=== PATIENT | female | born 1930 | race Caucasian/White ===

== ENCOUNTER 2017-01-26 17:14 | Inpatient (IN) | payer OTHER ==
[~2017-01-26] VITALS: Ht 157.5 cm; Wt 70.6 kg
--- NOTE | ~2017-01-26 | HM ---
Unit #: [id number] #: [id number] Patient: NIDIA PANDEY [id number] [address] [address] [id number] I MR#: [id number] NAME: NIDIA PANDEY : 1930 SEX: F STUDY DATE/TIME: UNIT: C3A PCU ROOM: 323 [facility] DESCRIPTION: Holter Monitor Attending Physician: Franco Crowe M.D. Primary Care Physician: Isabell Maciel A.P.R.N. CARDIOLOGY REPORT EXAM Holter Monitor DATE APPLIED 01/27/2017 DATE SCANNED 02/03/2017 ORDERED BY Matthew READ BY Dr. Pablito Sales REASON FOR TEST PVCs. DESCRIPTION 1. Basic underlying rhythm is normal sinus rhythm. Total beats 91,639. Average heart rate 63 per minute. Heart rate varies from 48 per minute at 9:53 a.m. to 91 per minute at 1:54 p.m. 2. 7024 isolated PVCs noted. Episodes of bigeminy noted. 3. 480 isolated PACs and 6 atrial couplets noted. Had 3 beat run of atrial tachycardia noted. No high grade AV blocks noted. 4. No diary with the symptoms available. Dictated by... Chloe Lee/alina TD: 02/04/2017 07:43 JOB #: [id number] Unit #: [id number] #: [id number] Patient: NIDIA PANDEY CARDIOLOGY REPORT Page 1 of 1 X Mary Sales MD HOLTER MONITOR REPORT
--- NOTE | ~2017-01-26 | CT23 ---
[facility] A Service of [facility] & [facility] RADIOLOGY TEXT RESULTS PATIENT: NIDIA PANDEY LOCATION: [facility] 323-01 : 32 UNIT #: [id number] AGE: [address]: Franco Crowe MD SEX: F ORDER DR: [id number] [facility] [address] [facility]. [place], [place] [address] [id number] I MR#: [id number] Acc #: [id number] NAME: NIDIA PANDEY : 1930 SEX: F STUDY DATE/TIME: 01/27/2017 17:53 UNIT: [address] ROOM: [facility] STUDY DESCRIPTION: CT Angio Neck Attending Physician: Franco Crowe M.D. Ordering Physician: Franco Crowe M.D. Primary Care Physician: Isabell Maciel A.P.R.N. MEDICAL IMAGING REPORT This report is preliminary unless electronic signature is present EXAM CT angiogram neck with contrast dated 01/27/2017. HISTORY Blurred vision, increasing confusion and weakness since 01/26/2017. FINDINGS Please see CT ANGIO HEAD report for combined text results. Dictated by... Rafia Lundberg M.D. THIS IS AN ELECTRONICALLY VERIFIED REPORT Rafia Lundberg M.D. at 01/28/2017 7:09 PM CPR/psc TD: 01/28/2017 11:17 JOB #: [id number] MEDICAL IMAGING REPORT Page 1 of 1 COPY
--- NOTE | ~2017-01-26 | MR17 ---
[facility] A Service of [facility] & [facility] RADIOLOGY TEXT RESULTS PATIENT: NIDIA PANDEY LOCATION: [facility] 466-01 : 32 UNIT #: [id number] AGE: [address]: Franco Crowe MD SEX: F ORDER DR: [id number] [facility] [address] [facility]. [place], [place] [address] [id number] I MR#: [id number] Acc #: [id number] NAME: NIDIA PANDEY : 1930 SEX: F STUDY DATE/TIME: 01/27/2017 11:18 UNIT: [facility] ROOM: [facility] STUDY DESCRIPTION: MR Brain WWo Contrast Attending Physician: Franco Crowe M.D. Ordering Physician: Darrell Castro M.D. Primary Care Physician: Isabell Maciel A.P.R.N. MRI CENTER REPORT This report is preliminary unless electronic signature is present. EXAM Brain MRI with and without HISTORY Visual disturbance. Patient complains of decreased vision right eye blurred with increased confusion and weakness for 5 days. COMMENTS MRI of the brain was performed prior to and following intravenous administration of 14 mL of MultiHance. Head CT comparison is from 01/26/2017. There is abnormally restricted diffusion in the left posterior cerebral artery distribution. It is ill-defined predominately inferiorly involving white matter and to a lesser extent the undersurface cortex left occipital lobe. It is consistent with visual disturbance given involvement of the optic radiations. It measures at most about 5 cm AP dimension 1.5 cm ML dimension. It is not associated with hemorrhagic transformation or significant mass effect. Please correlate for clinical evidence for risk factors for thromboembolic insult to the left posterior cerebral artery distribution. There is preexisting moderate white matter signal abnormality most apparent in the deep periventricular white matter which is nonspecific but likely due to small vessel disease. It is asymmetrically worse on the left side than the right side in general. There is also a small amount of signal abnormality in the charly probably due to small vessel disease. There are prominent perivascular spaces in the bilateral basal ganglia in addition to some chronic lacunar disease with smaller thalamic insults. The major arterial intracranial flow voids are currently maintained. There is no extraaxial fluid collection. There is mild generalized atrophy, essentially age-appropriate. The patient has had cataract surgery bilaterally. There is minimal fluid or inflammatory change in the right side mastoid air cells. Paranasal sinuses are clear. [facility] A Service of [facility] & [facility] RADIOLOGY TEXT RESULTS PATIENT: NIDIA PANDEY LOCATION: [facility] 466- : 32 UNIT #: [id number] AGE: [address]: Franco Crowe MD SEX: F ORDER DR: Small amount of susceptibility along the left-sided medulla service nonspecific possibly some old blood product deposition. This raises possibility of small amount of superficial siderosis possibly due to prior intracranial hemorrhage or surgery to the neuraxis. Following contrast administration, there is no pathologic intracranial enhancement. No intracranial mass lesion suspected. IMPRESSION 1. There is abnormally restricted diffusion involving the left posterior cerebral artery distribution. It is most concerning for a recent thromboembolic insult. This would be consistent with new onset visual disturbance. Further evaluation for thromboembolus source is recommended. 2. Moderate preexisting probable sequelae of small vessel disease. 3. Atrophy. No intracranial mass effect or extraaxial fluid collection. 4. 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 Please correlate further with clinical history. Dictated by... Nohemi Bolaños M.D. THIS IS AN ELECTRONICALLY VERIFIED REPORT Nohemi Bolaños M.D. at 01/27/2017 2:19 PM KENDRICK/kianna TD: 01/27/2017 12:34 JOB #: [id number] MRI CENTER REPORT Page 1 of 1 COPY
--- NOTE | ~2017-01-26 | EKG ---
PATIENT: NIDIA PANDEY UNIT #: [id number] Ventricular Rate: 68 BPM Atrial Rate: 68 BPM P-R Interval: 164 ms QRS Duration: 104 ms Q-T Interval: 412 ms QTC Calculation(Bezet): 438 ms P [place]: 66 degrees Calculated R [place]: 52 degrees Calculated T [place]: 70 degrees Diagnosis Line: Sinus rhythm with occasional Premature ventricular Diagnosis Line: complexes Diagnosis Line: Otherwise normal ECG Diagnosis Line: When compared with ECG of 26-JAN-2017 17:21, Diagnosis Line: (unconfirmed) Diagnosis Line: No significant change was found Diagnosis Line: Confirmed by HARRISON MENDEZ MD ([id number]) on 01/28/2017 Diagnosis Line: 4:55:08 PM INTERPRETING MD: VANESSA OCHOA
--- NOTE | ~2017-01-26 | HP ---
Unit #: [id number] #: [id number] Patient: NIDIA PANDEY [id number] [address] [place], [place] [address] [id number] I MR#: [id number] NAME: NIDIA PANDEY ROOM: [facility] Age: 86 Sex: F Admission Date: 01/26/2017 : 1930 Attending Physician: Franco Crowe M.D. Primary Care Physician: Isabell Maciel A.P.R.N. HISTORY AND PHYSICAL CHIEF COMPLAINT Confusion with right visual changes. HISTORY OF PRESENT ILLNESS This pleasant 86-year-old female with hypertension, hyperlipidemia, peripheral vascular disease, was transferred from [facility] emergency department for episode of confusion. The patient states that over the past two to three days has not felt well, has been weaker and sleeping more. She noticed that her right eye vision is changed, that she is having decreased vision over the right lateral aspect of her eye. [place] very weak this morning, and yesterday was a bit confused. States that she was a bit disoriented when she was driving around her neighborhood that she missed her usual street, that she walked to the door rather than the bathroom. She went to [facility] emergency department this afternoon where her initial blood pressure was 173/93 but did increase to as high as 196/86. She was given IV fluids and then 15 mg of hydralazine. Current blood pressure is 162/67. Denies true headache with the above, unilateral weakness, or definite dizziness. A CT scan was performed showing a questionable new tiny lesion in the left white matter. It could represent new small vessel ischemic disease. EKG does show unifocal PVCs. PAST MEDICAL HISTORY 1. Admission, 01/2016, for an upper GI bleed secondary to a duodenal bulb ulcer and moderate to severe gastritis. 2. Peripheral vascular disease status post elective right carotid endarterectomy, 11/2015. 3. Essential hypertension. 4. Hyperlipidemia. 5. Appendectomy. 6. Hysterectomy. 7. Right knee arthroscopic surgery. 8. Bilateral cataract extraction. SOCIAL HISTORY The patient lives alone. Her eight years ago. She is a lifelong nonsmoker, does not drink alcohol, previously worked as a teacher. FAMILY HISTORY CAD and kidney cancer. ALLERGIES Possibly to sulfa. Unit #: [id number] #: [id number] Patient: NIDIA PANDEY HOME MEDICATIONS List mentions: 1. Fish oil two capsules in the morning. 2. Multivitamin daily. 3. Cozaar 100 mg q.a.m. 4. Protonix 40 mg daily. 5. Aspirin 81 mg daily. 6. Vitamin D 2,000 units daily. 7. Pravachol 40 mg daily. REVIEW OF SYSTEMS Notable for visual changes right peripheral eye, a little bit of disorientation/confusion, hypertension, peripheral vascular disease, hyperlipidemia and above-mentioned surgeries. All other systems were reviewed and otherwise negative. PHYSICAL EXAMINATION GENERAL APPEARANCE: Delightful, 86-year-old, young-appearing female currently in no acute distress. VITAL SIGNS: Temperature 98.2. Pulse 67. Respirations 18. Current blood pressure 162/67, down from 196/86 after IV hydralazine. O2 saturation is 98% on room air. HEENT EXAMINATION: Eyes: PERRLA. Extraocular muscles are intact. The patient has good peripheral vision bilaterally. Her pharynx is benign. NECK: Supple without adenopathy, thyromegaly or definite carotid bruits. Right CEA scar noted. CHEST: Clear. CARDIAC: Normal S1, S2 with very soft systolic murmur best heard at the upper sternal border. ABDOMEN: Bowel sounds are present. No hepatosplenomegaly, tenderness or masses. Well-healed lower abdominal scars are noted. EXTREMITIES: Without clubbing, cyanosis or edema. Pedal pulses are somewhat diminished. No ulcers on the feet. NEUROLOGIC: The patient is awake, alert. She is oriented. Her cranial nerves are intact except that she is hard of hearing. She has 5+/5 strength throughout, normal obslps-zc-xaro, negative pronator drift. DIAGNOSTIC STUDIES LABORTORY: Hematocrit is 39.7. Normal white count, platelet count. MCV is a little low at 79.1. Normal coags. SMA-12: Glucose 136, sodium 134, potassium 3.4. Normal amylase, lipase. Normal lactic acid. Normal BNP. Negative cardiac markers. Urinalysis is negative. IMAGING: Chest x-ray: No acute disease. Head CT shows a questionably new tiny lesion in the left white matter which could represent new small vessel ischemic disease since last head CT. CARDIOVASCULAR: EKG: Sinus rhythm, rate 70 with occasional unifocal PVC. ASSESSMENT 1. Some disorientation of the past couple of days with some visual disturbance of the right eye. 2. Accelerated hypertension. 3. Occasional PVCs noted on EKG. 4. Peripheral vascular disease status post right carotid endarterectomy. 5. Hyperlipidemia. 6. Peptic ulcer disease. Unit #: [id number] #: [id number] Patient: NIDIA PANDEY PLAN 1. Obtain MRI of the brain. If negative, would consider Ophthalmology consultation. 2. Obtain echo and Holter monitor. 3. Replace potassium, check magnesium, as potassium level is a little bit low. 4. Continue usual medicines. 5. Check lipid profile. 6. DVT prophylaxis. 7. Further workup depending on MRI scan results. 8. Monitor blood pressure and treat if it remains persistently elevated. May need to add a second agent to the patient's Cozaar. Dictated by Chloe Anthony/lola TD: 01/27/2017 06:51 JOB #: [id number] HISTORY AND PHYSICAL Page 1 of 1 X Pat Steward MD X HISTORY AND PHYSICAL
--- NOTE | ~2017-01-26 | CO ---
Unit #: [id number] #: [id number] Patient: NIDIA PANDEY [id number] [facility] [address] [facility]. [place], [place] [address] [id number] I MR#: [id number] NAME: NIDIA PANDEY ROOM: 323 Age: 86 Sex: F Admission Date: 01/26/2017 : 1930 Attending Physician: Franco Crowe M.D. Primary Care Physician: Isabell Maciel A.P.R.N. Consultation Date: 01/26/2017 CONSULTATION REPORT PRIMARY CARE PHYSICIAN Isabell Maciel A.P.R.N. REASON FOR CONSULTATION Episode of confusion, vision changes, and now abnormal MRI with left DESIGN ENGINEERING INTERN infarct. PATIENT IDENTIFICATION This is an 86-year-old right-handed white female, who is evaluated in room 466 at [facility]. SOURCE OF INFORMATION The patient and evaluation done in detail by Dr. Steward. PROBLEM LIST 1. Prior history of GI bleed secondary to duodenal bulb ulcer and wrsakfjr-wt-ybxlzi gastritis. 2. Peripheral vascular disease, status post elective carotid endarterectomy in 11/2015. 3. Essential hypertension. 4. Hyperlipidemia. 5. Appendectomy. 6. Hysterectomy. 7. Right knee arthroscopic surgery. 8. Bilateral cataract extraction. She is on aspirin. HISTORY OF PRESENT ILLNESS This is a very pleasant 86-year-old right-handed white female, who is actually admitted because she reported that she did not feel well, she also complained of decreased vision and also problems in the right lateral aspect, so that prompted an MRI and MRI shows left DESIGN ENGINEERING INTERN distribution multiple embolic type infarct, but almost the whole territory is involved somehow. The patient reports that she started noticing vision changes sometimes during the middle of the last week, so she is not a tPA or interventional candidate. Dr. Crowe has already seen the patient and already started stroke workup. She is already on aspirin and we may have to switch to Plavix, but possible do a ROSELINE and further workup. She does have risk factors including age and hypertension. Her cholesterol was elevated including 201 cholesterol and triglycerides 266, LDL of 110. Her blood pressure when she came in was as high as 173 systolic and 93 Unit #: [id number] #: [id number] Patient: NIDIA PANDEY diastolic. No falls or injuries. Nothing suggesting risk for dissection. PAST MEDICAL HISTORY As discussed above. PAST SURGICAL HISTORY As discussed above. FAMILY HISTORY Coronary artery disease and kidney cancer. SOCIAL HISTORY The patient is for about 8 years. She lives alone, but her son who is involved with her somehow. She is a retired teacher. No tobacco, alcohol, or drug use. REVIEW OF SYSTEMS CONSTITUTIONAL: Mostly, vision changes and some headaches, which is nonspecific. She also feels fatigued and tired and she state that she rest and sleeps, but she still feels like she needs more sleep. NECK: No neck problems. CARDIOVASCULAR: No chest pain, clubbing, cyanosis, orthopnea, or palpitation. PULMONARY: No shortness of air, cough, or expectoration. GI: No nausea, vomiting, diarrhea, or constipation. : No genitourinary symptom. EXTREMITIES: No extremity problems. BACK: No back problem. Psychiatric: No psychotic issue. NEUROLOGIC: Stroke. No other hematologic, dermatologic, or endocrine problems known to me. PHYSICAL EXAMINATION VITAL SIGNS: Temperature 98.6, pulse 63, respirations 16, blood pressure 171/58, O2 saturations were 96% to 99%, weight 155 pounds, BMI was 28. NEUROLOGIC: The patient is awake, alert, oriented x3 and has normal speech. She feels a bit anxious and pressured. Cranial nerve examination demonstrates full fischer of vision to confrontation. Eye movements are conjugate. I did not see any ptosis. I did not see any nystagmus. Extraocular movements are intact. Sensation on the face and scalp are normal. Strength of muscles of facial expression are normal. Hearing seemed to be intact bilaterally. Tongue was midline. Uvula was midline. I could not visualize her oropharynx otherwise. On motor examination, she has normal bulk and tone. Strength was 5-/5 all over. Sensory examination intact for soft touch and pain sensation. No extinction was seen. Romberg was not evaluated. Gait examination was deferred. Reflexes 1/4 in the upper extremities, I could not elicit any in the lower extremities. Toes are equivocal. Unit #: [id number] #: [id number] Patient: NIDIA PANDEY DIAGNOSTIC STUDIES IMAGING STUDIES: Brain MRI which I have reviewed personally. LABORATORY RESULTS: Random glucose of 109 to 136, otherwise chemistry profile was okay. White count was 12.3, hemoglobin and hematocrit of 12.3 and 36.5, platelet count was 213. Urinalysis is unremarkable. IMPRESSION This is a very interesting 86-year-old female, who has left posterior cerebral artery infarct. I do agree with Dr. Crowe to get CTA. I will check other labs. I will put her on Plavix and I would recommend ROSELINE and Holter monitor and we will go from there. She is not a tPA or intervention candidate. She does have some risk factors and I will follow up and see how things go. I am going to move her to third floor and we will start the workup and she may have need some rehab. Dictated by... Jessi Mercado M.D. RICHIE/sharita TD: 01/28/2017 11:10 JOB #: [id number] CONSULTATION REPORT Page 1 of 1 X Jessi Mercado MD X CONSULTATION REPORT
--- NOTE | ~2017-01-26 | DS ---
Unit #: [id number] #: [id number] Patient: NIDIA PANDEY [id number] [address] [address] [id number] I MR#: [id number] NAME: NIDIA PANDEY ROOM: 323 Age: 86 Sex: F Admission Date: 01/26/2017 : 1930 Discharge Date: 01/28/2017 Attending Physician: Franco Crowe M.D. Primary Care Physician: Doug Fountain.PBenRLevi. 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 SECONDARY DIAGNOSES 1. Hypertension, uncontrolled. 2. Dyslipidemia. 3. History of peptic ulcer disease. HOSPITAL COURSE Patient was admitted to the hospital with vision changes, taste changes and some mild confusion which primarily presented itself as difficulty with concentration. She underwent MRI of the head which showed the stroke. She also underwent CT angiogram of the head and neck as well as transesophageal echocardiogram which revealed a grade [address] Mercado with neurology recommended follow up with the [facility]roke [facility] based on the results of the CT angiogram of the head and neck and recommended discharging the patient on Lipitor 80 mg daily, aspirin 81 mg daily and Coumadin. Patient will receive physical therapy, occupational therapy and speech therapy at home and will have a family member stay with her for the next few days. She will follow up with her primary care physician in 1-3 weeks, which is nurse practitioner Isabell Maciel, who works with Dr. Trenton Michel. DISCHARGE DISPOSITION To home. DISCHARGE STATUS Stable. DISCHARGE ACTIVITY Ad álvaro. Patient was verbally advised about fall precautions and cautions around sharp objects based on her Coumadin although the patient already uses all of these precautions even prior to being placed on blood thinners. DISCHARGE DIET 2000 mg sodium heart health diet. DISCHARGE FOLLOWUP With her PCP in 1-3 weeks and with the [facility]roke Team in 4-8 weeks. DISCHARGE MEDICATIONS 1. Lipitor 80 mg p.o. daily. 2. Hydralazine 25 mg p.o. t.i.d. Unit #: [id number] #: [id number] Patient: NIDIA PANDEY 3. Cozaar 100 mg p.o. daily. 4. Multivitamin 1 tablet p.o. daily. 5. Aspirin 81 mg p.o. daily. 6. Protonix 40 mg p.o. daily. 7. Vitamin D 2000 units p.o. daily. 8. Fish oil 1200 mg tablet, 2 tablets p.o. q. a.m. 9. Coumadin 3 mg p.o. daily. She will get her first INR on Thursday with results to her PCPs office. Dictated by... Franco Crowe M.D. DANILO/alina TD: 01/29/2017 08:50 JOB #: [id number] DISCHARGE SUMMARY Page 1 of 1 X Franco Crowe MD X DISCHARGE SUMMARY
--- NOTE | ~2017-01-26 | EKG ---
PATIENT: NIDIA PANDEY UNIT #: [id number] Ventricular Rate: 69 BPM Atrial Rate: 69 BPM P-R Interval: 180 ms QRS Duration: 86 ms Q-T Interval: 402 ms QTC Calculation(Bezet): 430 ms P [place]: 52 degrees Calculated R [place]: 47 degrees Calculated T [place]: 60 degrees Diagnosis Line: Sinus rhythm with frequent Premature ventricular Diagnosis Line: complexes Diagnosis Line: Nonspecific ST abnormality Diagnosis Line: Abnormal ECG Diagnosis Line: When compared with ECG of 04-FEB-2016 15:54, Diagnosis Line: Premature ventricular complexes are now Present Diagnosis Line: Confirmed by MARCELINA KESSLER MD ([id number]) on Diagnosis Line: 01/30/2017 10:40:48 AM INTERPRETING MD: CHECO OCHOA
--- NOTE | ~2017-01-26 | CT17 ---
[facility] A Service of [facility] & [facility] RADIOLOGY TEXT RESULTS PATIENT: NIDIA PANDEY LOCATION: [facility] 323- : 32 UNIT #: [id number] AGE: [address]: Franco Crowe MD SEX: F ORDER DR: [id number] [facility] [address] [place], [place] [address] [id number] I MR#: [id number] Acc #: [id number] NAME: NIDIA PANDEY : 1930 SEX: F STUDY DATE/TIME: 01/27/2017 17:53 UNIT: [address] ROOM: [facility] STUDY DESCRIPTION: CT Angio Head Attending Physician: Franco Crowe M.D. Ordering Physician: Franco Crowe M.D. Primary Care Physician: Isabell Maciel A.P.R.N. MEDICAL IMAGING REPORT This report is preliminary unless electronic signature is present EXAM CT angiogram of the head and neck with contrast dated 01/27/2017. COMPARISON CTA head and neck with contrast dated 07/26/2014. HISTORY Blurred vision, increasing confusion and weakness since 01/26/2017. FINDINGS CT angiogram of the head and neck was obtained with IV contrast in the axial plane. The neck arteries were curved reformatted and the major vessels of the [place] were reformatted in all 3 planes along with 3-D tumbling MIP images and surface-rendered images with MCA snapshots at a separate workstation. This CT exam was performed with one or more of the following radiation dose reduction techniques: Automatic exposure control, adjustment of mA and/or kV according to patient size, and iterative reconstruction. NECK: The left common carotid artery arises from the innominate artery immediately after its origin. Left vertebral artery directly arises from the arch or from the left subclavian artery immediately after its origin. Atherosclerotic plaques are noted in the aortic arch and there appears to be mild prominence of the pulmonary arteries, measuring 2.7 cm in the right and 2.9 cm in the left pulmonary arteries. Main pulmonary artery is not enlarged. No aortic aneurysmal dilatation is seen. Visualized bilateral common carotid arteries demonstrate calcified plaque at the bifurcation of the left CCA. Previously noted narrowing in the region of the right ICA is no longer seen with probably postoperative carotid endarterectomy change. No surgical metallic yokasta are noted but there appears to be mild wall thickening of the distal CCA extending into the STS. [facility] A Service of [facility] & [facility] RADIOLOGY TEXT RESULTS PATIENT: NIDIA PANDEY LOCATION: [facility] 323-01 : 32 UNIT #: [id number] AGE: [address]: Franco Crowe MD SEX: F ORDER DR: ICA bulb with significant improvement in patency. Bilateral ECA are within normal limits, too. Vertebral arteries demonstrate no significant stenosis. They are codominant. HEAD: Bilateral intracranial internal carotid arteries demonstrate atherosclerotic plaques in bilateral cavernous and supraclinoid ICA. Bilateral anterior cerebral arteries, anterior communicating arteries are within normal limits. There appears to be a focal tiny segment of uick-dp-iubsaufm stenosis of the left MCA branch immediately after its origin. No distal flow limitation is seen. Bilateral PComms are noted which feed P2 and distal portions of bilateral [employer] CLE[employer] with very ulsuvjjcxso-qu-iubpsbkw right P1 and a probably hypoplastic left P1 segment. The basilar artery appears to significantly decrease in caliber after the takeoff of bilateral superior cerebellar arteries with a tiny caliber basilar tip. It is probably a congenital appearance. 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 No obvious aneurysm or AVM. Dural venous sinuses are patent without filling defects to suggest thrombosis. EXTRAVASCULAR SOFT TISSUES: Degenerative disc and facet changes are noted at multiple levels of the cervical spine with varying degrees of canal stenosis and neural foraminal narrowing at various levels. Enlarged thyroid gland is noted with heterogeneity. Hypodense and calcified lesions are noted, relatively stable and probably related to goiter. No significant lymphadenopathy. IMPRESSION 1. No aneurysm or AVM. 2. There has been interval improvement in the right internal carotid artery caliber when compared to the prior study where there was severe stenosis. Correlate with history of carotid endarterectomy. There are also some wall thickening and changes at the right distal CCA extending to the right ICA bulb. 3. There is a tiny segment of moderate narrowing noted at the origin of one of the left MCA trifurcation branches, relatively stable. 4. The basilar artery decreases significantly in caliber after takeoff of bilateral PICA with a very tiny tip. 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 Bilateral PComms feed P2 distal portions of bilateral HOUSE CLEANER giving rise to the persistent appearance. Mild atherosclerotic irregularities are noted along the HOUSE CLEANER vessels without any significant occlusion. Possible tiny segment of severe stenosis in presumed P3-P4 segment on the left cannot be excluded. There is, however, flow noted distally. 5. Left P3-P4 junction possible tiny segment of hxiwkzxe-wq-yrgong stenosis, worse since prior study from 2 years ago. 6. There appears to be mild dilatation of bilateral pulmonary arteries. [facility] A Service of [facility] RADIOLOGY TEXT RESULTS PATIENT: NIDIA PANDEY LOCATION: [place] [address] : 32 UNIT #: [id number] AGE: [address]: Franco Crowe MD SEX: F ORDER DR: Dictated by... Rafia Lundberg M.D. THIS IS AN ELECTRONICALLY VERIFIED REPORT Rafia Lundberg M.D. at 01/28/2017 7:09 PM CPR/psc TD: 01/28/2017 11:01 JOB #: [id number] MEDICAL IMAGING REPORT Page 1 of 1 COPY
--- NOTE | ~2017-01-26 | CT71 ---
[facility] A Service of [facility] & [facility] RADIOLOGY TEXT RESULTS PATIENT: NIDIA PANDEY LOCATION: [facility] 323-01 : 32 UNIT #: [id number] AGE: [address]: Franco Crowe MD SEX: F ORDER DR: [id number] [address] [address] [id number] E MR#: [id number] Acc #: [id number] NAME: NIDIA PANDEY : 1930 SEX: F STUDY DATE/TIME: 01/26/2017 18:04 UNIT: SED ROOM: STUDY DESCRIPTION: CT Head Wo Contrast Attending Physician: Kath Patricia M.D. Ordering Physician: Kath Patricia M.D. Primary Care Physician: Isabell Maciel A.P.R.N. MEDICAL IMAGING REPORT This report is preliminary unless electronic signature is present. EXAM CT head without IV contrast. COMPARISON CT angiography of the head and neck dated July 26, 2014. INDICATION 86-year-old female with blurry vision, increasing confusion, and weakness for [address] exam was performed with one or more of the following radiation dose reduction techniques: automatic exposure control, adjustment of mA and/or kV according to patient size, and iterative reconstruction. FINDINGS Mastoid air cells, middle ears, and visualized paranasal sinuses are well-aerated. There are calcifications in the cavernous internal carotid arteries extending into the intracranial segments bilaterally. There are minimal vertebral artery calcifications bilaterally at the level of the foramen magnum. There is no abnormal extraaxial fluid collection. No acute intracranial hemorrhage. No mass effect. There is no convincing evidence of acute cortical ischemia. There is a focus of hypoattenuation immediately adjacent to the left lateral ventricle which was not seen previously but given the density is most in keeping with chronic small vessel ischemic change. IMPRESSION Tiny low density lesion in the left periventricular white matter, not seen on CT angiography of 2014 but perhaps not seen on that exam due to technical factors. This seems most in keeping with chronic small vessel ischemic change. There are no other possible acute intracranial abnormalities seen on this exam. Cerebral volume and cerebellar volume STS. [facility] A Service of [facility] & [facility] RADIOLOGY TEXT RESULTS PATIENT: NIDIA PANDEY LOCATION: [facility] 323-01 : 32 UNIT #: [id number] AGE: [address]: Franco Crowe MD SEX: F ORDER DR: appears to be within normal limits for patient age. Dictated by... Dylan Inman M.D. THIS IS AN ELECTRONICALLY VERIFIED REPORT Dylan Inman M.D. at 02/01/2017 9:57 PM JUDE/jeniffer TD: 01/26/2017 22:40 JOB #: [id number] MEDICAL IMAGING REPORT Page 1 of 1
--- NOTE | ~2017-01-26 | CR72 ---
[facility]. [facility] A Service of [facility] & [facility] RADIOLOGY TEXT RESULTS PATIENT: NIDIA PANDEY LOCATION: [place] [address] : 32 UNIT #: [id number] AGE: [address]: Franco Crowe MD SEX: F ORDER DR: [id number] [address] [address] [id number] E MR#: [id number] Acc #: [id number] NAME: NIDIA PANDEY : 1930 SEX: F STUDY DATE/TIME: 01/26/2017 18:05 UNIT: SED ROOM: STUDY DESCRIPTION: CR Chest Single View Portable Attending Physician: Kath Patricia M.D. Ordering Physician: Kath Patricia M.D. Primary Care Physician: Isabell Maciel A.P.R.N. MEDICAL IMAGING REPORT This report is preliminary unless electronic signature is present. EXAM Frontal chest, 01/26/2017. INDICATION 86-year-old female with altered mental status. Increased confusion, weakness for a couple of days, blurred vision. TECHNIQUE Frontal chest compared with 11/07/2015. FINDINGS Cardiac silhouette is within normal limits. Vascularity is normal. Lungs clear. There are calcified granulomas. Posterior chronic rib fracture on the right. IMPRESSION Negative frontal chest. Chronic posterior rib fracture on the right. Dictated by... David Yuan M.D. THIS IS AN ELECTRONICALLY VERIFIED REPORT David Yuan M.D. at 01/27/2017 8:29 AM NEIL/jeniffer TD: 01/26/2017 23:43 JOB #: [id number] MEDICAL IMAGING REPORT Page 1 of 1
[~2017-01-26 17:14] MED LIST: ASPIRIN EC81 M1 PO; ASPIRIN81 MG PO; BLOOD PRESSURE PILL; COZAAR100 MG PO; FISH OIL 1,2001 EAC1 PO; HYDROCODON-ACE1 EACH PO; LIPITOR40 MG PO; PERCOCET 5/321 UDTAB PO; PRAVASTATIN SOD40 MG PO; PREDNISONE PO; PROTONIX PO; VITAMIN D-32000 UNI1 PO; VITAMIN D2000 UNIT PO; [UNRECOGNIZED DRUG - OTHER] PO
[2017-01-26 17:51] LABS: BASOPHIL# 0.1 X10e3 (0-0.3); BASOPHIL% 0.6 % (0-2.5); EOSINOPHIL# 0.2 X10e3 (0-0.7); EOSINOPHIL% 2.6 % (0.0-7.0); HEMATOCRIT 39.7 % (35.0-45.0); HEMOGLOBIN 13.4 gm/dL (12.0-16.0); LYMPHOCYTE# 2.9 X10e3 (1.0-3.5); LYMPHOCYTE% 32.5 % (17.0-45.0); MEAN CELL VOLUME 79.1 FL (83-96); MEAN CORPUSCULAR HEMOGLOBIN 26.7 PG (28-34); MEAN CORPUSCULAR HGB CONC 33.7 g/dL (30-36); MEAN PLATELET VOLUME 9.6 FL (6.5-11.5); MONOCYTE# 0.9 X10e3 (0-1.0); MONOCYTE% 10.1 % (3.0-12.0); NEUTROPHIL# 4.9 X10e3 (1.5-7.1); NEUTROPHIL% 54.2 % (40-75); PLATELET COUNT 237 X10e3 (140-420); RED BLOOD COUNT 5.02 X10e (3.90-5.30); RED CELL DISTRIBUTION WIDTH 15.2 % (11.0-15.5); WHITE BLOOD COUNT 9.1 X10e3 (4.0-10.5)
[2017-01-26 17:53] LABS: URINE SOURCE CATH
[2017-01-26 17:54] LABS: POC - MYOGLOBIN 76.6 ng/mL (0.0-169.0); POC - TROPONIN <0.05 ng/mL (<=0.05)
[2017-01-26 17:55] LABS: URINE APPEARANCE CLEAR; URINE BILIRUBIN NEG (NEG); URINE BLOOD NEG (NEG); URINE COLOR YELLOW; URINE GLUCOSE NEG (NORM); URINE KETONE NEG (NEG); URINE LEUKOCYTE ESTERASE NEG (NEG); URINE NITRATE NEG (NEG); URINE PH 6.5 (5-8); URINE PROTEIN NEG (NEG); URINE SPECIFIC GRAVITY <=1.005 (1.003-1.035); URINE UROBILINOGEN 0.2 MG/DL (NORM)
[2017-01-26 18:00] LABS: MICRO INDICATED? NO
[2017-01-26 18:00] LABS: DIFF IND NO
[2017-01-26 18:13] LABS: BILIRUBIN, DIRECT 0.1 mg/dL (0.0-0.2); BILIRUBIN,INDIRECT 0.3 mg/dL (0.0-0.9); BILIRUBIN,TOTAL 0.4 mg/dL (0.2-2.0); BUN/CREATININE RATIO 23.75; CALCIUM SERUM 9.3 mg/dL (8.4-10.2); CREATININE SERUM 0.8 mg/dL (0.6-1.4); GLOM FILT RATE Estimated 67.8 mL/min (>60); MAGNESIUM 2.2 mg/dL (1.6-3.0); POTASSIUM 3.4 mmol/L (3.5-5.1); PROTEIN TOTAL SERUM 6.6 g/dL (6.0-8.3)
[2017-01-26 19:19] LABS: POC - CKMB 1.6 ng/mL (0.0-7.9); POC - MYOGLOBIN 84.5 ng/mL (0.0-169.0); POC - TROPONIN <0.05 ng/mL (<=0.05)
[2017-01-27 03:26] LABS: BASOPHIL# 0.1 X10e3 (0-0.3); BASOPHIL% 0.8 % (0-2.5); EOSINOPHIL# 0.3 X10e3 (0-0.7); EOSINOPHIL% 2.5 % (0.0-7.0); HEMATOCRIT 36.5 % (35.0-45.0); HEMOGLOBIN 12.3 gm/dL (12.0-16.0); LYMPHOCYTE# 3.8 X10e3 (1.0-3.5); LYMPHOCYTE% 30.8 % (17.0-45.0); MEAN CELL VOLUME 79.2 FL (83-96); MEAN CORPUSCULAR HEMOGLOBIN 26.7 PG (28-34); MEAN CORPUSCULAR HGB CONC 33.7 g/dL (30-36); MEAN PLATELET VOLUME 9.5 FL (6.5-11.5); MONOCYTE# 1.1 X10e3 (0-1.0); MONOCYTE% 9.1 % (3.0-12.0); NEUTROPHIL% 56.8 % (40-75); PLATELET COUNT 213 X10e3 (140-420); RED BLOOD COUNT 4.61 X10e (3.90-5.30); RED CELL DISTRIBUTION WIDTH 15.2 % (11.0-15.5); WHITE BLOOD COUNT 12.3 X10e3 (4.0-10.5)
[2017-01-27 03:27] LABS: DIFF IND NO
[2017-01-27 03:52] LABS: BUN/CREATININE RATIO 24.28; CALCIUM SERUM 9.7 mg/dL (8.4-10.2); CREATININE SERUM 0.7 mg/dL (0.6-1.4); GLOM FILT RATE Estimated 79.6 mL/min (>60); MAGNESIUM 2.1 mg/dL (1.6-3.0); POTASSIUM 4.8 mmol/L (3.5-5.1)
[2017-01-27 04:11] LABS: %MB 3.8 % (0.0-4.0); MB 2.6 ng/ml
[2017-01-27 16:38] LABS: HEMATOCRIT 38.8 % (35.0-45.0); MEAN CELL VOLUME 79.6 FL (83-96); MEAN CORPUSCULAR HEMOGLOBIN 26.6 PG (28-34); MEAN CORPUSCULAR HGB CONC 33.4 g/dL (30-36); MEAN PLATELET VOLUME 9.3 FL (6.5-11.5); RED BLOOD COUNT 4.88 X10e (3.90-5.30); RED CELL DISTRIBUTION WIDTH 15.2 % (11.0-15.5); WHITE BLOOD COUNT 10.2 X10e3 (4.0-10.5)
[2017-01-27 16:54] LABS: INR 0.9; PARTIAL THROMBOPLASTIN TIME 27.1 SECONDS (23.5-31.3); PROTHROMBIN TIME (PATIENT) 10.3 SECONDS (10.0-11.7)
[2017-01-27 17:04] LABS: ALBUMIN SERUM 3.8 g/dL (3.5-5.0); BILIRUBIN,TOTAL 0.6 mg/dL (0.2-2.0); BUN/CREATININE RATIO 21.25; CREATININE SERUM 0.8 mg/dL (0.6-1.4); GLOM FILT RATE Estimated 67.8 mL/min (>60); POTASSIUM 4.3 mmol/L (3.5-5.1); PROTEIN TOTAL SERUM 6.5 g/dL (6.0-8.3)
[2017-01-27 17:33] LABS: FOLATE (FOLIC ACID) >23.3 ng/mL (>5.8)
[2017-01-28 02:05] LABS: HEMATOCRIT 36.7 % (35.0-45.0); HEMOGLOBIN 12.2 gm/dL (12.0-16.0); MEAN CELL VOLUME 79.1 FL (83-96); MEAN CORPUSCULAR HEMOGLOBIN 26.2 PG (28-34); MEAN CORPUSCULAR HGB CONC 33.1 g/dL (30-36); MEAN PLATELET VOLUME 9.2 FL (6.5-11.5); RED BLOOD COUNT 4.64 X10e (3.90-5.30); RED CELL DISTRIBUTION WIDTH 15.1 % (11.0-15.5); WHITE BLOOD COUNT 10.3 X10e3 (4.0-10.5)
[2017-01-28 02:29] LABS: CALCIUM SERUM 9.2 mg/dL (8.4-10.2); GLOM FILT RATE Estimated 51.7 mL/min (>60); POTASSIUM 3.9 mmol/L (3.5-5.1)
[2017-01-28] MEDS ORDERED: WARFARIN SODIUM3 M1 PO (16:00)
[2017-01-28] MEDS ORDERED: LIPITOR40 MG PO (16:01)
[2017-01-28] MEDS ORDERED: HYDRALAZINE HCL25 MG PO (16:02)
== END 2017-01-28 17:53 | disposition home or self-care (01) | DRG 65 ==
LOC: SED 17:14 → C4C 19:04 → C3A PCU 19:05 → SED 19:05 → C4C 01-27 06:00 → C3A PCU 01-27 15:18
PROVIDERS: Internal Medicine; Psychiatry & Neurology Neurology; Student in an Organized Health Care Education/Training Program
PROC: B328YZZ Computerized Tomography (CT Scan) of Bilateral Internal Carotid Arteries using Other Contrast (ICD-10-PCS; 2017-01-27)
PROC: B32GYZZ Computerized Tomography (CT Scan) of Bilateral Vertebral Arteries using Other Contrast (ICD-10-PCS; 2017-01-27)
PROC: B32RYZZ Computerized Tomography (CT Scan) of Intracranial Arteries using Other Contrast (ICD-10-PCS; 2017-01-27)
PROC: B24BZZ4 Ultrasonography of Heart with Aorta, Transesophageal (ICD-10-PCS; principal; 2017-01-28)
DX: I63.532 Cerebral infarction due to unspecified occlusion or stenosis of left posterior cerebral artery (principal); G81.91 Hemiplegia, unspecified affecting right dominant side; I73.9 Peripheral vascular disease, unspecified; I08.1 Rheumatic disorders of both mitral and tricuspid valves; I70.0 Atherosclerosis of aorta; K27.9 Peptic ulcer, site unspecified, unspecified as acute or chronic, without hemorrhage or perforation; I10 Essential (primary) hypertension; E78.5 Hyperlipidemia, unspecified; Z90.710 Acquired absence of both cervix and uterus; Z98.42 Cataract extraction status, left eye; Z98.41 Cataract extraction status, right eye; Z79.82 Long term (current) use of aspirin; I49.3 Ventricular premature depolarization
CPT/HCPCS: 36415; 51701; 70450; 70496; 70498; 70553; 71010; 80048; 80053; 80061; 80076; 81003; 82150; 82550; 82553; 82607; 82746; 82947; 83036; 83605; 83690; 83735; 83874; 83880; 84132; 84443; 84484; 85025; 85027; 85610; 85730; 86140; 86592; 92523-GN; 93005; 93225; 93226; 93312; 96361; 96374; 97116; 97161; 97165; 97535; 99285; A9577; G8978-GP; G8979-GP; G8987-GO; G8988-GO; G9162-GN; G9163-GN; G9164-GN; J0360; J1650; J2250; J3010; Q9967

== ENCOUNTER 2017-02-02 14:13 | Inpatient (IN) | payer OTHER ==
[~2017-02-02] VITALS: Ht 160 cm; Wt 68.8 kg
--- NOTE | ~2017-02-02 | MR18 ---
[facility] A Service of [facility] & [facility] RADIOLOGY TEXT RESULTS PATIENT: NIDIA PANDEY LOCATION: A 303-01 : 32 UNIT #: [id number] AGE: [address]: Cindy Sanchez MD SEX: F ORDER DR: [id number] [facility] [address] [place], [place] [address] [id number] I MR#: [id number] Acc #: [id number] NAME: NIDIA PANDEY : 1930 SEX: F STUDY DATE/TIME: 02/03/2017 12:35 UNIT: A U ROOM: 303 STUDY DESCRIPTION: MR Brain Wo Contrast Attending Physician: Cindy Sanchez M.D. Ordering Physician: Cindy Sanchez M.D. Primary Care Physician: Isabell Maciel A.P.R.N. MRI CENTER REPORT This report is preliminary unless electronic signature is present. EXAM MRI of the brain without contrast, dated 02/03/2017. COMPARISON MRI brain with and without contrast from [facility], dated 01/27/2017. HISTORY Stroke last week, blurry vision in the right, right-sided weakness for 1 week. Confusion for 2 days. FINDINGS Multisequence, multiplanar imaging of the brain was obtained without contrast. There is a large area (8.5 x 2.9 cm) of restricted diffusion in the left temporal lobe extending to the left occipital lobe, left side of the splenium of the corpus callosum, lateral aspect of the left thalamus. Associated increased T2 signal is noted without any hemorrhage. Scattered hyperintense T2 nonspecific lesions are also noted in the periventricular and subcortical white matter. Thick slices through the sella with the pituitary gland, pineal region and upper cervical spine are within normal limits. S-shaped nasal septal deviation is seen. Minimal paranasal sinus mucosal thickening is noted. Status post bilateral cataract surgery. Mild right mastoid mucosal thickening is also seen. IMPRESSION 1. Interval worsening. 2. There is a large (8.5 x 2.9 cm) restricted diffusion lesion with increased T2 signal in the left posterior cerebral artery distribution most suggestive of acute to late acute non-hemorrhagic infarct. It is worse when compared to the prior MRI brain from 01/27/2017. 3. No hydrocephalus or midline shift is seen. 4. Scattered hyperintense T2-signal lesions are noted in the STS. [facility] A Service of [facility] & [facility] RADIOLOGY TEXT RESULTS PATIENT: NIDIA PANDEY LOCATION: [facility] 303-01 : 32 UNIT #: [id number] AGE: [address]: Cindy Sanchez MD SEX: F ORDER DR: supratentorial white matter, likely related to mild chronic microvascular ischemic change or old lacunar infarcts. NOTE Findings were discussed with Pamela, the nurse taking care of the patient at 1:30 p.m. on 02/03/2017. Dictated by... Rafia Lundberg M.D. THIS IS AN ELECTRONICALLY VERIFIED REPORT Rafia Lundberg M.D. at 02/04/2017 10:41 AM CPR/jale TD: 02/03/2017 22:19 JOB #: [id number] MRI CENTER REPORT Page 1 of 1 COPY
--- NOTE | ~2017-02-02 | DS ---
Unit #: [id number] #: [id number] Patient: NIDIA PANDEY [id number] [facility] [address] [place], [place] [address] [id number] I MR#: [id number] NAME: NIDIA PANDEY ROOM: 303 Age: 86 Sex: F Admission Date: 02/02/2017 : 1930 Discharge Date: 02/06/2017 Attending Physician: Cindy Sanchez M.D. Primary Care Physician: Isabell Maciel A.P.R.N. DISCHARGE SUMMARY DIAGNOSIS ON ADMISSION Confusion, rule out CVA. DIAGNOSES ON DISCHARGE 1. Recent left posterior cerebral artery cerebrovascular accident. 2. Acute urinary tract infection. 3. Acute encephalopathy. 4. Hypertension. 5. Gastroesophageal reflux disease. 6. Dyslipidemia. 7. History of peptic ulcer disease. 8. History of peripheral vascular disease. 9. Possible seizure. CONSULTATIONS Consultations are Dr. Mercado in neurology consultation. LABS AND PROCEDURES DONE 1. The patient's urinalysis was positive. Urine culture has not revealed any growth in 24 hours. 2. MRI of brain revealed large 8.5 x 2.9 cm late acute nonhemorrhagic infarct. No hydrocephalus or midline shift was seen. 3. Patient had a 24-hour Holter monitor done which revealed a basic underlying rhythm was normal sinus rhythm. HOSPITAL COURSE 12-vtqyu-hej patient was admitted to [facility] with increased confusion. Details are as per admission H and P. Patient was recently discharged home on 01/27 and she was diagnosed with an acute stroke. Patient was seen by Dr. Mercado in consultation, had a repeat MRI which reveals slight worsening which Dr. Mercado thought was the evolution of the stroke. There was a concern of hemorrhagic conversion. Dr. Mercado requested that patient should not be on Coumadin for next three weeks and she was just started on a baby aspirin. Possible seizure. Patient is having episodes where she becomes unresponsive and then she wakes up and there was concern of seizure, therefore Vimpat was started. Acute urinary tract infection. Patient is started on Keflex. There is no growth on culture for 24 hours. The plan was discussed in detail with the patient's daughter who showed Unit #: [id number] #: [id number] Patient: NIDIA PANDEY complete understanding. All of her concerns were answered to her apparent satisfaction. PHYSICAL EXAMINATION GENERAL: Today patient is comfortable, is pleasantly confused. VITAL SIGNS: Reveal temperature of 98.5, pulse is 64 per minute, respiratory rate is 16 per minutes, blood pressure is 169/62. HEENT: Examination revealed no conjunctival congestion. Sclera is nonicteric. NECK: Is supple. Trachea is central. RESPIRATORY: Examination revealed breath sounds equal bilaterally. There are no wheezes or crackles. HEART: is regular rate and rhythm, S1, S2. ABDOMEN: Is soft, nontender, bowel sounds are present in all four quadrants. NEUROLOGICALLY: Patient is alert to person only, is pleasantly confused. Strength is 4+ bilaterally. SKIN: Is warm and dry. RECOMMENDATIONS ON DISCHARGE 1. Condition is stable. 2. Activity as tolerated. 3. Medications are: a. Tylenol 650 mg p.o. q.6 hours p.r.n. b. Fish oil 2 tablets every morning. c. Lipitor 80 mg q.h.s. d. Hydralazine 25 mg p.o. t.i.d. e. Cozaar 100 mg p.o. daily. f. Multivitamin 1 tablet p.o. daily. g. Enteric coated aspirin 81 mg p.o. daily. h. Protonix 40 mg p.o. daily. i. Vitamin D 2000 units p.o. daily. j. Keflex 500 mg p.o. daily for five days. k. Please make note that patient's Coumadin should be restarted in 3 weeks. DISPOSITION Patient will be transferred to rehab facility. Please make note that the plan was discuss in detail with the patient's daughter and all of her questions were answered to her satisfaction. The plan has also been discussed with Dr. Mercado. Patient's daughter is aware of the patient's guarded prognosis because of her advanced age and large stroke. Dictated by... Chloe Hernandez TD: 02/06/2017 17:41 JOB #: [id number] Unit #: [id number] #: [id number] Patient: NIDIA PANDEY DISCHARGE SUMMARY Page 1 of 1 X Cindy Sanchez MD DISCHARGE SUMMARY
--- NOTE | ~2017-02-02 | CR72 ---
[facility] A Service of [facility] & [facility] RADIOLOGY TEXT RESULTS PATIENT: NIDIA PANDEY LOCATION: [facility] 303- : 32 UNIT #: [id number] AGE: [address]: Cindy Sanchez MD SEX: F ORDER DR: [id number] [facility] [address] [place], [place] [address] [id number] I MR#: [id number] Acc #: [id number] NAME: NIDIA PANDEY : 1930 SEX: F STUDY DATE/TIME: 02/02/2017 16:49 UNIT: [address] ROOM: [facility] STUDY DESCRIPTION: CR Chest Single View Portable Attending Physician: Cindy Sanchez M.D. Ordering Physician: Trenton Prince M.D. Primary Care Physician: Isabell Maciel A.P.R.N. MEDICAL IMAGING REPORT This report is preliminary unless electronic signature is present EXAM Portable chest INDICATIONS Shortness of air starting today COMPARISON 01/26/2017 FINDINGS Portable view of the chest was obtained. The heart size and vasculature are normal. Lungs are clear and bones are unremarkable. IMPRESSION No active disease. Dictated by... Ramiro Devine M.D. THIS IS AN ELECTRONICALLY VERIFIED REPORT Ramiro Devine M.D. at 02/03/2017 1:30 PM ELY/debbie TD: 02/03/2017 10:52 JOB #: [id number] MEDICAL IMAGING REPORT Page 1 of 1 COPY
--- NOTE | ~2017-02-02 | EKG ---
PATIENT: NIDIA PANDEY UNIT #: [id number] Ventricular Rate: 67 BPM Atrial Rate: 67 BPM P-R Interval: 166 ms QRS Duration: 110 ms Q-T Interval: 416 ms QTC Calculation(Bezet): 439 ms P Brenton: 52 degrees Calculated R Brenton: 54 degrees Calculated T Brenton: 58 degrees Diagnosis Line: Sinus rhythm with occasional Premature ventricular Diagnosis Line: complexes Diagnosis Line: Inferior infarct , age undetermined Diagnosis Line: Abnormal ECG Diagnosis Line: When compared with ECG of 27-JAN-2017 15:40, Diagnosis Line: No significant change was found Diagnosis Line: Confirmed by ANABEL ALFONSO MD ([id number]) on Diagnosis Line: 02/03/2017 2:08:57 PM INTERPRETING MD: KADEN OCHOA
--- NOTE | ~2017-02-02 | HP ---
Unit #: [id number] #: [id number] Patient: NIDIA PANDEY [id number] [facility] [address]. [place], [place] [address] [id number] MR#: [id number] NAME: NIDIA PANDEY ROOM: [address]11 Age: 86 Sex: F Admission Date: 02/02/2017 : 1930 Attending Physician: Cindy Sanchez M.D. Primary Care Physician: Isabell Maciel A.P.R.N. HISTORY AND PHYSICAL DIAGNOSIS ON ADMISSION Altered mental status, possible worsening of recent stroke. HISTORY OF PRESENT ILLNESS An 86-year-old who was recently admitted in [facility] from January 26 to January 28, 2017, and was diagnosed with acute ischemic stroke in the left posterior cerebral artery distribution secondary to grade 4 aortic atheroma. Patient was discharged on aspirin and Coumadin. Patient was not doing well at home for the last two to three days and had increased confusion. Unfortunately, at this point, the patient is confused, and she states that she is not sure why she is in the hospital. Patient's daughter is currently not available. Therefore, history was obtained with the help of ER physician who had spoken with the daughter. Apparently, patient was confused and was not able to concentrate and name things. Therefore, patient's primary care physician did a CT scan of the head which showed worsening stroke with possible hemorrhagic transformation. Therefore, patient was sent to the hospital. Currently, patient is lying comfortably in bed. Denies having any headache or visual problems. She denies any weakness in any particular part of the body. She denies chest pain, alert and oriented, nausea, vomiting, or abdominal pain. There is no history of blood in urine or in stools. The rest of the review of systems is negative or is not reliable as the patient is confused. PAST MEDICAL HISTORY As above. 1. Hypertension. 2. Hyperlipidemia. 3. Peptic ulcer disease. 4. Patient had a hemoglobin A1c of 5.4 on previous admission. 5. Patient was discharged on Coumadin, but her INR is subtherapeutic at 1.4. 6. Peripheral vascular disease with history of right carotid endarterectomy in November 2015. 7. Appendectomy. 8. Hysterectomy. 9. Bilateral cataract extraction. 10. Right knee arthroscopic surgery. ALLERGIES Sulfa. HOME MEDICATIONS Unit #: [id number] #: [id number] Patient: NIDIA PANDEY 1. Lipitor 80 mg p.o. at bedtime. 2. Hydralazine 25 mg p.o. t.i.d. 3. Losartan 100 mg p.o. daily. 4. Multivitamin 1 tablet daily. 5. Enteric-coasted aspirin 81 mg daily. 6. Protonix 40 mg daily. 7. Vitamin D. 8. Fish oil. 9. Coumadin 3 mg p.o. daily. Patient did not take her dose today. SOCIAL HISTORY Patient lives alone. She denies smoking, drinking, or use of illicit drugs. She has worked as a teacher. FAMILY HISTORY Kidney cancer and coronary artery disease. PHYSICAL EXAMINATION GENERAL: Patient is lying comfortably in bed. She is alert to person and place but is confused to time. VITAL SIGNS: Temperature of 98.2, pulse is 64 per minute, respiratory rate is 18 per minute, blood pressure is 170/84. HEENT: No conjunctival congestion. Sclerae are nonicteric. NECK: Supple. Trachea is central. RESPIRATORY: Examination revealed breath sounds equal bilaterally. There are no wheezes or crackles. HEART: Regular rate and rhythm, S1 and S2. ABDOMEN: Soft and nontender. Bowel sounds are present in all four quadrants. PSYCHIATRIC: Patient is alert to person and place but confused to time. NEUROLOGICALLY: Patient's strength is 5+ bilaterally. Her cranial nerves are intact bilaterally. Sensations are intact bilaterally. SKIN: Warm and dry. DIAGNOSTIC STUDIES LABORATORY ON ADMISSION: Patient's creatinine is 0.9, sodium 139, and potassium is 3.7. INR was 1.1. WBC 13.6, hemoglobin 14, and platelet count is 271,000. IMAGING: Patient apparently had a CT scan of the head done which revealed progression of subacute infarct. There was hemorrhagic transformation. CARDIOLOGY: EKG today revealed sinus rhythm with occasional premature ventricular complexes. ASSESSMENT AND PLAN An 86-year-old patient presented to the hospital with confusion. 1. Recent subacute cerebrovascular accident with possible hemorrhagic conversion. I will order MRI and we will monitor patient overnight. We will hold on patient's Coumadin and aspirin for now. 2. Hypertension. Will continue home medications. 3. Gastroesophageal reflux disease. Will continue on Protonix. 4. Dyslipidemia. Will continue on Lipitor. 5. I called and discussed with Dr. Mercado who recommended to do an MRI without contrast tomorrow. 1. Dictated by Unit #: [id number] #: [id number] Patient: NIDIA PANDEY Chloe Hernandez TD: 02/02/2017 22:25 JOB #: [id number] HISTORY AND PHYSICAL Page 1 of 1 X Cindy Sanchez MD X HISTORY AND PHYSICAL
--- NOTE | ~2017-02-02 | CO ---
Unit #: [id number] #: [id number] Patient: NIDIA PANDEY [id number] [address] [place], [place] [address] [id number] MR#: [id number] NAME: NIDIA PANDEY ROOM: 303 Age: 86 Sex: F Admission Date: 02/02/2017 : 1930 Attending Physician: Cindy Sanchez M.D. Primary Care Physician: Isabell Maciel A.P.R.N. Consultation Date: 02/03/2017 CONSULTATION REPORT PRIMARY CARE PHYSICIAN Isabell Maciel A.P.R.N. REASON FOR CONSULTATION Confusion, worsening of mental status, vision changes. This patient was discharged on the . I saw her on the . PROBLEM LIST 1. New left [employer] infarct embolic type and probably secondary to arch atheroma. 2. Hypertension. 3. Hyperlipidemia. 4. Peptic ulcer disease. 5. Appendectomy. 6. Hysterectomy. 7. Bilateral cataract extraction. 8. Right knee arthroscopic surgery. 9. Hard of hearing. HISTORY OF PRESENT ILLNESS This is an 86-year-old female, who was recently admitted on and discharged on the . She was diagnosed with acute ischemic stroke and grade 4 arch atheroma. She had some intracranial atherosclerotic disease, so she was started on aspirin and Plavix because the stroke was not greater than 50% and was patchy embolic type in the [employer] territory, so she has been more confused and now she realizes the vision changes on the right side. Previously, she was not really very much concerned about and she is more confused. I looked at her CT and is very questionable if any hemorrhagic conversion, so I had a very detailed discussion with Dr. Sanchez and also with the patient and her daughter. The patient is quite confused right now and also she is very emotional. She is crying about her son, so the question is, there are any emotional component or there is true hemorrhage. Her INR was 1.9, so I have discussed with the team to get an MRI of the brain. If the MRI shows evolving strokes and hemorrhage then that would be different treatment plan including stopping the Coumadin and maybe continue the aspirin and take a risk with hemorrhages. If it does not show hemorrhage and evolution of the stroke, then continue aspirin and Plavix. If it shows new strokes and no hemorrhage, then definitely continue aspirin, Plavix, and high-dose Lipitor, and see how things go. I will check her urine also. If this confusion and memory problem is secondary to some temporal lobe involvement or other issue that will be debated after the MRI. Unit #: [id number] #: [id number] Patient: NIDIA PANDEY No seizures. No migraine. PAST MEDICAL HISTORY As discussed above. PAST SURGICAL HISTORY As discussed above. ALLERGIES Sulfa. HOME MEDICATIONS Lipitor 80 mg; hydralazine 25 mg p.o. t.i.d.; losartan 100 mg daily; multivitamin 1 tablet daily; enteric-coated aspirin 81 mg daily; Protonix 40 mg daily; vitamin D; fish oil; Coumadin, which has been stopped. FAMILY HISTORY Kidney cancer and coronary artery disease. SOCIAL HISTORY The patient apparently was living alone, but has some support. She used to work as a teacher. She denies smoking, alcohol use, or drugs. REVIEW OF SYSTEMS The patient is quite confused to get a full detailed review of systems. She is complaining of numbness on the right side and also vision changes. PHYSICAL EXAMINATION VITAL SIGNS: Temperature 97.8, pulse 63, respirations 18, blood pressure 147/51, O2 saturations are 92% to 99%, weight of 153 pounds. BMI was 27. NEUROLOGIC: The patient is awake. She is alert. She is oriented to herself and her daughter. She is really struggling with the time and place. She has started crying, so this is depression related or there is new memory problems. She can name. She can follow commands. Cranial nerve examination, she has right homonymous hemianopia. Eye movements are conjugate. Pupils are sluggishly reactive. Sensation on the face and scalp are normal. Strength of muscles of facial expression normal. Hearing seemed to be intact. Tongue was midline. Uvula was midline. Palate elevation was okay. Head turning was spontaneous. Motor examination demonstrates normal bulk and tone. Strength was 5-/5. Sensory examination, very questionable, somewhat decreased sensation on the right side especially on the face. I did not see anything. Romberg was not evaluated. Gait examination was deferred. I could not get any reflexes. Toes are equivocal. Coordination was otherwise unremarkable. DIAGNOSTIC STUDIES LABORATORY RESULTS: Reviewed. IMAGING STUDIES: Reviewed. Unit #: [id number] #: [id number] Patient: NIDIA PANDEY IMPRESSION Confusion, so the first thing would be to make sure there is nothing else going wrong. One of my concern was some blood pressure changes. When she came, her blood pressure was as high as 170 systolic and 84 diastolic. I am going to get an MRI and please refer to my discussion regarding future plan and we will go from there. I will keep you informed and in the meantime, I will check her urine also and if there is any other question, issue, or concern, please let me know. I showed the images to her daughter. We will follow up and if everything is okay, she may be discharged to be followed as outpatient as already planned last week. Dictated by... Chloe Ferrera/sharita TD: 02/04/2017 06:03 JOB #: [id number] CONSULTATION REPORT Page 1 of 1 X Jessi Mercado MD CONSULTATION REPORT
[~2017-02-02 14:13] MED LIST changes: -ASPIRIN81 M2 PO; -ATORVASTATIN CA80 MG PO; -COUMADIN PO; -COZAAR PO; -FISH OIL300 MG PO; -MULTIVITAMINS1 EAC3 PO
[2017-02-02 16:09] LABS: BASOPHIL# 0.1 X10e3 (0-0.3); BASOPHIL% 0.4 % (0-2.5); EOSINOPHIL# 0.1 X10e3 (0-0.7); EOSINOPHIL% 1.1 % (0.0-7.0); HEMATOCRIT 41.7 % (35.0-45.0); LYMPHOCYTE# 2.6 X10e3 (1.0-3.5); LYMPHOCYTE% 18.8 % (17.0-45.0); MEAN CORPUSCULAR HEMOGLOBIN 26.5 PG (28-34); MEAN CORPUSCULAR HGB CONC 33.5 g/dL (30-36); MEAN PLATELET VOLUME 9.2 FL (6.5-11.5); MONOCYTE# 1.4 X10e3 (0-1.0); MONOCYTE% 10.2 % (3.0-12.0); NEUTROPHIL# 9.4 X10e3 (1.5-7.1); NEUTROPHIL% 69.5 % (40-75); PLATELET COUNT 271 X10e3 (140-420); RED BLOOD COUNT 5.28 X10e (3.90-5.30); RED CELL DISTRIBUTION WIDTH 15.1 % (11.0-15.5); WHITE BLOOD COUNT 13.6 X10e3 (4.0-10.5)
[2017-02-02 16:10] LABS: DIFF IND NO
[2017-02-02 16:20] LABS: POC - CKMB 1.9 ng/mL (0.0-7.9); POC - TROPONIN <0.05 ng/mL (<=0.05)
[2017-02-02 16:24] LABS: INR 1.1
[2017-02-02 16:43] LABS: ALBUMIN SERUM 4.2 g/dL (3.5-5.0); BILIRUBIN, DIRECT 0.1 mg/dL (0.0-0.2); BILIRUBIN,INDIRECT 0.2 mg/dL (0.0-0.9); BILIRUBIN,TOTAL 0.3 mg/dL (0.2-2.0); BUN/CREATININE RATIO 24.44; CALCIUM SERUM 10.4 mg/dL (8.4-10.2); CREATININE SERUM 0.9 mg/dL (0.6-1.4); GLOM FILT RATE Estimated 58.8 mL/min (>60); POTASSIUM 3.7 mmol/L (3.5-5.1); PROTEIN TOTAL SERUM 7.2 g/dL (6.0-8.3)
[2017-02-02] MEDS ORDERED: ATORVASTATIN CA80 MG PO (17:29)
[2017-02-02] MEDS ORDERED: HYDRALAZINE HCL25 MG PO (17:29)
[2017-02-02] MEDS ORDERED: MULTIVITAMINS1 EAC3 PO (17:30)
[2017-02-02] MEDS ORDERED: VITAMIN D2000 UNIT PO (17:30)
[2017-02-02] MEDS ORDERED: COZAAR PO (17:30)
[2017-02-02] MEDS ORDERED: ASPIRIN81 M2 PO (17:30)
[2017-02-02] MEDS ORDERED: PROTONIX PO (17:30)
[2017-02-02] MEDS ORDERED: FISH OIL300 MG PO (17:31)
[2017-02-02] MEDS ORDERED: COUMADIN PO (17:31)
[2017-02-04 04:41] LABS: HEMATOCRIT 38.6 % (35.0-45.0); MEAN CELL VOLUME 79.1 FL (83-96); MEAN CORPUSCULAR HEMOGLOBIN 26.5 PG (28-34); MEAN CORPUSCULAR HGB CONC 33.5 g/dL (30-36); MEAN PLATELET VOLUME 9.6 FL (6.5-11.5); RED BLOOD COUNT 4.88 X10e (3.90-5.30); RED CELL DISTRIBUTION WIDTH 15.2 % (11.0-15.5); WHITE BLOOD COUNT 12.1 X10e3 (4.0-10.5)
[2017-02-04 05:06] LABS: CALCIUM SERUM 9.6 mg/dL (8.4-10.2); GLOM FILT RATE Estimated 51.7 mL/min (>60); POTASSIUM 3.9 mmol/L (3.5-5.1)
[2017-02-04 10:55] LABS: URINE APPEARANCE TURBID; URINE BILIRUBIN NEG (NEG); URINE BLOOD 3+ (NEG); URINE COLOR YELLOW; URINE GLUCOSE 100 MG/DL (NEG); URINE KETONE NEG (NEG); URINE LEUKOCYTE ESTERASE 3+ (NEG); URINE NITRATE NEG (NEG); URINE PH 5.5 (5-8); URINE PROTEIN 3+ (NEG); URINE SPECIFIC GRAVITY 1.017 (1.003-1.035); URINE UROBILINOGEN 0.2 MG/DL (NEG)
[2017-02-04 10:57] LABS: URINE BACTERIA AUWI 4+ (NEGATIVE); URINE SQUAMOUS EPITHELIAL CELL OCC /[HPF]; UWBCS1 AUWI INNUM (0-5)
[2017-02-05 05:31] LABS: HEMATOCRIT 38.9 % (35.0-45.0); HEMOGLOBIN 12.6 gm/dL (12.0-16.0); MEAN CELL VOLUME 79.6 FL (83-96); MEAN CORPUSCULAR HEMOGLOBIN 25.8 PG (28-34); MEAN CORPUSCULAR HGB CONC 32.4 g/dL (30-36); MEAN PLATELET VOLUME 9.8 FL (6.5-11.5); RED BLOOD COUNT 4.89 X10e (3.90-5.30); RED CELL DISTRIBUTION WIDTH 14.9 % (11.0-15.5); WHITE BLOOD COUNT 11.6 X10e3 (4.0-10.5)
[2017-02-05 07:22] LABS: BUN/CREATININE RATIO 25.45; CALCIUM SERUM 9.8 mg/dL (8.4-10.2); CREATININE SERUM 1.1 mg/dL (0.6-1.4); GLOM FILT RATE Estimated 46.1 mL/min (>60); POTASSIUM 4.1 mmol/L (3.5-5.1)
[2017-02-05 12:41] LABS: URINE SOURCE CATH
[2017-02-05 12:48] LABS: URINE APPEARANCE CLEAR; URINE BILIRUBIN NEG (NEG); URINE BLOOD NEG (NEG); URINE COLOR YELLOW; URINE GLUCOSE NEG (NEG); URINE KETONE NEG (NEG); URINE LEUKOCYTE ESTERASE 2+ (NEG); URINE NITRATE NEG (NEG); URINE PROTEIN NEG (NEG); URINE SPECIFIC GRAVITY 1.012 (1.003-1.035); URINE UROBILINOGEN 0.2 MG/DL (NEG)
[2017-02-05 12:50] LABS: CULTURE INDICATED? YES; URBCS1 AUWI 0-2 /[HPF] (0-2); URINE BACTERIA AUWI NEG (NEGATIVE); URINE SQUAMOUS EPITHELIAL CELL OCC /[HPF]
== END 2017-02-06 18:59 | DRG 64 ==
LOC: CED 14:13 → C3A PCU 18:10 → CEDOF 18:10 → CED 18:38 → C3A PCU 02-03 08:13 → CEDOF 02-03 08:13 → C3A PCU 02-06 18:59
PROVIDERS: Emergency Medicine; Internal Medicine; Internal Medicine Nephrology
DX: I63.532 Cerebral infarction due to unspecified occlusion or stenosis of left posterior cerebral artery (principal); G93.49 Other encephalopathy; N39.0 Urinary tract infection, site not specified; G40.909 Epilepsy, unspecified, not intractable, without status epilepticus; I10 Essential (primary) hypertension; K21.9 Gastro-esophageal reflux disease without esophagitis; E78.5 Hyperlipidemia, unspecified; Z90.710 Acquired absence of both cervix and uterus; Z88.2 Allergy status to sulfonamides; Z82.49 Family history of ischemic heart disease and other diseases of the circulatory system; Z80.51 Family history of malignant neoplasm of kidney
CPT/HCPCS: 36415; 70450; 70551; 71010; 80048; 80076; 81003; 82553; 82947; 84484; 85025; 85027; 85610; 87086; 92507; 92523-GN; 93005; 97110; 97116; 97162; 97165; 97530; 97532; 97535; 99285; G8978-GP; G8979-GP; G8987-GO; G8988-GO; G8989-GO; G8996-GN; G8997-GN; J0696

== ENCOUNTER → 2017-02-02 | Outpatient (CLI) | payer OTHER ==
[~2017-02-02] MED LIST changes: +ASPIRIN81 M2 PO; +ATORVASTATIN CA80 MG PO; +COUMADIN PO; +COZAAR PO; +FISH OIL300 MG PO; +HYDRALAZINE HCL25 MG PO; +MULTIVITAMINS1 EAC3 PO; +WARFARIN SODIUM3 M1 PO
--- NOTE | ~2017-02-02 | CT71 ---
[facility] A Service of [facility] & [facility] RADIOLOGY TEXT RESULTS PATIENT: NIDIA PANDEY LOCATION: [facility] : 32 UNIT #: [id number] AGE: [address]: Isabell Maciel APRN SEX: F ORDER DR: [id number] [facility] [address] [place], [place] [address] [id number] O MR#: [id number] Acc #: [id number] NAME: NIDIA PANDEY : 1930 SEX: F STUDY DATE/TIME: 02/02/2017 12:03 UNIT: [facility] ROOM: STUDY DESCRIPTION: CT Head Wo Contrast Attending Physician: Isabell Maciel A.P.R.N. Referring Physician: Isabell Maciel A.P.R.N. Ordering Physician: Isabell Maciel A.P.R.N. Primary Care Physician: Isabell Maciel A.P.R.N. MEDICAL IMAGING REPORT This report is preliminary unless electronic signature is present EXAMINATION Noncontrast CT head. DATE: 02/02/2017 HISTORY 86-year-old female with acute ischemic stroke. History of stroke last week with blurred vision in the right eye. Followup. Increasing confusion today with words not coming out right. COMPARISON Noncontrast CT head 01/26/2017. MRI brain 01/27/2017. CTA head and neck 01/27/2017. TECHNIQUE This CT exam was performed with one or more of the following radiation dose reduction techniques: automatic control, adjustment of mA and/or kV according to patient size, and iterative reconstruction. FINDINGS There is new or increased hypodensity within the left temporal lobe and left occipital lobe since the previous 01/26/2017 examination. It involves both the deep white matter in the cortical and subcortical regions, and is consistent with acute or subacute infarct. The degree of infarct involvement appears increased when compared to the MRI brain of 01/27/2017. There is ill-defined serpiginous hyperdensity centrally within the suspected region of infarct, which may represent a hemorrhagic transformation. However, there is no midline shift. There is mild adjacent sulcal effacement. Scattered areas of hypodensity elsewhere within the deep white matter of the brain are thought to represent changes of chronic microvascular disease. [facility] A Service of [facility] & [facility] RADIOLOGY TEXT RESULTS PATIENT: NIDIA PANDEY LOCATION: [facility] : 32 UNIT #: [id number] AGE: [address]: Isabell Maciel APRN SEX: F ORDER DR: Calvaria is within normal limits. Paranasal sinuses mastoid air cells are clear. IMPRESSION Findings consistent with progression of acute or subacute infarct involving the left occipital and temporal lobes, particularly when compared to the MRI brain from 01/27/2017. Serpiginous hyperdensity within the left occipital - temporal lobe may represent hemorrhagic transformation. However, there is no midline shift. Dictated by... Latoya Tavares M.D. THIS IS AN ELECTRONICALLY VERIFIED REPORT Latoya Tavares M.D. at 02/03/2017 9:50 AM HAMLET/inga TD: 02/03/2017 06:34 JOB #: [id number] MEDICAL IMAGING REPORT Page 1 of 1 COPY
== END | disposition home or self-care (01) ==
LOC: CCAT 11:30
DX: I63.9 Cerebral infarction, unspecified (principal)
CPT/HCPCS: 70450